=== PATIENT | female | born 1985 | race American Indian/Alaskan Native ===

== ENCOUNTER 2017-02-01 22:07 | Emergency (ER) | payer OTHER ==
[2017-02-01] MEDS ORDERED: TYLENOL PO ONE (22:20)
[2017-02-01] MEDS ORDERED: TYLENOL ONE (22:29)
[2017-02-01 23:05] VITALS: BP 112/68
[2017-02-01 23:38] LABS: Bilirubin,Urine NEG (Negative); Blood,Urine NEG (Negative); Ketones,Urine TR mg/dL (Negative); Leukocyte Esterase,Urine NEG (Negative); Mucus,Urine 1+ /HPF; Nitrite,Urine NEG (Negative)
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
[2017-02-02] MEDS ORDERED: TORADOL IM ONE (01:49)
[2017-02-02] MEDS ORDERED: FLEXERIL PO ONE (01:49)
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
== END 2017-02-02 02:48 | disposition home or self-care (01) ==
LOC: ED 22:07
DX: S16.1XXA Strain of muscle, fascia and tendon at neck level, initial encounter (principal); V49.9XXA Car occupant (driver) (passenger) injured in unspecified traffic accident, initial encounter; Y93.89 Activity, other specified; Y92.89 Other specified places as the place of occurrence of the external cause; Y99.8 Other external cause status
CPT/HCPCS: 70450; 71110; 72125; 72128; 72131; 81001; 81025; 93005; 93010; 96372; 99284; J1885